=== PATIENT | male | born 1985 | race Caucasian/White ===

== ENCOUNTER 2017-12-16 11:47 | Emergency (ER) | payer OTHER | END 2017-12-16 12:14 | disposition home or self-care (01) | LOC: E/R 11:47 | DX: L73.9 Follicular disorder, unspecified (principal) | CPT/HCPCS: 99284; Z7502 ==

== ENCOUNTER 2018-04-12 04:22 | Emergency (ER) | payer OTHER ==
[2018-04-12 05:38] LABS: URINE BLOOD (Dip) POC 2+ (NEGATIVE); URINE GLUCOSE (Dip) POC Negative (NEGATIVE); URINE KETONES (Dip) POC Negative (NEGATIVE); URINE LEUKOCYTE EST (Dip) POC Negative (NEGATIVE); URINE NITRITE (Dip) POC Negative (NEGATIVE); URINE TOTAL PROTEIN POC 1+ (NEGATIVE)
[2018-04-12] MEDS: LIDOCAINE/MYLANTA 40 ML BTL PO (05:54)
[2018-04-12] MEDS: SOD CHLORIDE 0.9% 1,000 ML IV (05:54)
[2018-04-12] MEDS: ONDANSETRON 4 MG INJ IV (05:54)
[2018-04-12 06:05] LABS: ADD MAN DIFF? NO
[2018-04-12 06:09] LABS: WHITE BLOOD COUNT 11.4 10^3/ul (4.8-10.8)
[2018-04-12 06:09] LABS: BASOPHILS % 0.2 % (0.0-2.0); EOSINOPHILS % 0.3 % (0.0-7.0); HEMATOCRIT 44.4 % (42.0-52.0); HEMOGLOBIN 15.1 g/dl (14.0-18.0); LYMPHOCYTES # 1.7 10^3/ul (0.8-2.9); LYMPHOCYTES % 14.5 % (15.0-51.0); MEAN CORPUSCULAR HEMOGLOBIN 30.3 pg (29.0-33.0); MEAN CORPUSCULAR VOLUME 89.2 fl (82.0-101.0); MEAN PLATELET VOLUME 12.2 fl (7.4-10.4); MONOCYTE # 0.5 10^3/ul (0.3-0.9); MONOCYTES % 4.4 % (0.0-11.0); NEUTROPHIL # 9.2 10^3/ul (1.6-7.5); NEUTROPHILS % 80.2 % (39.0-77.0); PLATELET COUNT 267 10^3/UL (140-415); RED BLOOD COUNT 4.98 10^6/ul (4.70-6.10); RED CELL DISTRIBUTION WIDTH 13.1 % (11.5-14.5)
[2018-04-12 06:31] LABS: ADD UMIC YES; UR ASCORBIC ACID NEGATIVE (NEGATIVE); UR BILIRUBIN (Dip) NEGATIVE (NEGATIVE); UR BLOOD (Dip) 2+ mg/dL (NEGATIVE); UR CLARITY CLEAR (CLEAR); UR COLOR YELLOW (YELLOW); UR GLUCOSE (Dip) NEGATIVE (NEGATIVE); UR KETONES (Dip) NEGATIVE (NEGATIVE); UR LEUKOCYTE ESTERASE (Dip) NEGATIVE Leu/ul (NEGATIVE); UR MUCUS MANY /HPF (NONE SEEN); UR NITRITE (Dip) NEGATIVE (NEGATIVE); UR RBC 4 /HPF (0-5); UR SPECIFIC GRAVITY (Dip) 1.023 (1.003-1.030); UR SQUAMOUS EPITHELIAL CELL FEW /HPF (FEW); UR TOTAL PROTEIN (Dip) NEGATIVE (NEGATIVE); UR UROBILINOGEN (Dip) NEGATIVE (NEGATIVE); UR WBC 4 /HPF (0-5)
[2018-04-12 06:34] LABS: ALANINE AMINOTRANSFERASE 26 IU/L (13-69); ALBUMIN 4.3 g/dl (3.3-4.9); ALKALINE PHOSPHATASE 105 IU/L (42-121); ANION GAP 15 (8-16); ASPARTATE AMINO TRANSFERASE 19 IU/L (15-46); BILIRUBIN,INDIRECT 0.5 mg/dl (0-1.1); BILIRUBIN,TOTAL 0.5 mg/dl (0.2-1.3); BLOOD UREA NITROGEN 13 mg/dl (7-20); CALCIUM 9.1 mg/dl (8.4-10.2); CARBON DIOXIDE 26 mmol/L (21-31); CHLORIDE 108 mmol/L (97-110); CREATININE 0.85 mg/dl (0.61-1.24); GLUCOSE 102 mg/dl (70-220); LIPASE 63 U/L (23-300); POTASSIUM 3.2 mmol/L (3.5-5.1); SODIUM 146 mmol/L (135-144); TOTAL PROTEIN 8.2 g/dl (6.1-8.1)
== END 2018-04-12 07:14 | disposition home or self-care (01) ==
LOC: E/R 04:22
DX: R10.84 Generalized abdominal pain (principal); R11.0 Nausea
CPT/HCPCS: 36415; 74018; 80053; 81001; 81003; 83690; 85025; 96374; 99284-25